=== PATIENT | female | born 1955 | race Caucasian/White ===

== ENCOUNTER → 2019-08-02 | Outpatient (CLI) | payer OTHER | LOC: M.MRI 07-25 11:30 | DX: S83.242A Other tear of medial meniscus, current injury, left knee, initial encounter (principal); M17.12 Unilateral primary osteoarthritis, left knee; X58.XXXA Exposure to other specified factors, initial encounter; Y93.89 Activity, other specified; Y92.89 Other specified places as the place of occurrence of the external cause; Y99.8 Other external cause status ==

== ENCOUNTER → 2019-08-11 | Outpatient (CLI) | payer OTHER ==
[~2019-08-11] MED LIST: BETAMETHASONE D50 G2 TOP; DIOVAN HCT 80-1 EACH PO; FLEXERIL PO; FUROSEMIDE 20 M20 M1 PO; IBUPROFEN 200200 M1 PO; KLOR-CON 1010 MEQ PO; LITE COAT ASPI325 MG PO; MUCINEX1200 MG PO; NORCO 5-325 TA1 EAC1 PO; OMEPRAZOLE40 MG PO; RESTORIL30 MG PO; TRIAMCINOLONE 080 G3 TOP; VIBRAMYCIN 100100 M2 PO; VOLTAREN GEL 1100 G2 TOP; ZOCOR 20 MG TAB20 M1 PO
== END ==
LOC: M.LAB 09:27
PROVIDERS: ATTEND Orthopaedic Surgery
DX: Z01.812 Encounter for preprocedural laboratory examination (principal)

== ENCOUNTER → 2019-08-17 | Day surgery (SDC) | payer OTHER ==
[2019-08-17 08:32] LABS: HEMOGLOBIN 15.5 gm/dL (12.0-15.0); MCH 30.2 pg (26.0-34.0); MCHC 33.7 g/dL (28.0-37.0); MCV 89.6 fL (80.0-100.0); MPV 9.3 fl. (7.2-11.1); RBC 5.13 mil/uL (4.20-5.00); RDW-CV 13.7 % (10.5-14.5); WBC 15.2 thou/uL (4.0-11.0)
[2019-08-17 08:43] LABS: CALCIUM 9.1 mg/dL (8.5-10.1); CREATININE 0.8 mg/dL (0.6-1.3); POTASSIUM 4.2 mmol/L (3.5-5.1)
--- NOTE | 2019-08-17 17:09 | EKG ---
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1955 Requested By: Mundo Hall Order Number: [id number] Elijah MD: Arnulfo Cohen Measurements Intervals [place] Rate: 102 P: 48 CT: 169 QRS: -25 QRSD: 83 T: 60 QT: 354 QTc: 462 Interpretive Statements Sinus tachycardia Borderline left axis deviation No previous ECG available for comparison Electronically Signed On 08-17-2019 17:07:53 CDT by Arnulfo Cohen [email or web address] <ELECTRONICALLY SIGNED> By: Arnulfo Cohen MD, [facility] 08/17/19 1707 2 2 Arnulfo Cohen MD, FACC /EPI
--- NOTE | 2019-08-18 14:41 | OP ---
[address] [address] OPERATIVE REPORT Name: MUSAJANE Estelita Room: [facility]#: [id number] Admission: 08/17/19 Attend Phys: Mundo Hall II Discharge: Date of : 55 Report #: [id number] THIS REPORT FOR: //name// cc: RASHMI WADDELL APRN, STEFFANY APRN ~ THIS REPORT FOR: //name// CC: Mundo WADDELL DATE OF SERVICE: 08/17/2019 PREOPERATIVE DIAGNOSIS: Left knee medial meniscus tear. POSTOPERATIVE DIAGNOSES: 1. Left knee medial meniscus tear. 2. Lateral meniscus tear. 3. Grade 3 chondromalacia, patellofemoral groove. PROCEDURE PERFORMED: 1. Left knee arthroscopic surgery with partial medial and lateral meniscectomy. 2. Abrasion chondroplasty, patellofemoral groove, down to bleeding bone. SURGEON: Mundo Hall II, DO FULLING MACHINE OPERATOR: DARLIN Farias ANESTHESIA: Per operative record. ESTIMATED BLOOD LOSS: Minimal. ANTIBIOTICS: Per operative record. DRAINS: None. COMPLICATIONS: None. CONDITION OF THE PATIENT: Stable to recovery room. DESCRIPTION OF PROCEDURE: The patient was taken to the operative suite and placed supine on the operative table, given appropriate anesthesia. The patient's affected lower extremity was sterilely prepped and draped with well-padded knee arthroscopic qiu. Surgery began by midline portal incision. The arthroscope was advanced in the joint. There was shown to be grade 3 chondromalacia, patellofemoral groove. Utilizing a shaver, an abrasion chondroplasty was performed down to bleeding bone and then smoothed using [facility] [address] [place] [address] OPERATIVE REPORT Name: JANE MUSA Room: [facility]#: [id number] Admission: 08/17/19 Attend Phys: Mundo Hall II Discharge: Date of : 55 Report #: [id number] Coblation wand. A medial meniscus was shown to have a tear to the medial margin extending around to the medial aspect of the joint. Utilizing a shaver, a partial meniscectomy was performed to remove the torn flap and baskets were utilized to smooth the meniscus. It was then smoothed with Coblation wand in appropriate fashion. Lateral meniscus was probed and shown to have a tear to the lateral margin extending around to the lateral aspect. Utilizing a shaver, a partial meniscectomy was performed as well as using baskets to resect the torn flap along the lateral meniscus and then smoothed utilizing Coblation wand. ACL and PCL were intact. Final irrigation was performed. The knee was drained of arthroscopic fluid, closed with 4-0 nylon in interrupted fashion. Dermabond and sterile dressing applied. The patient transported to recovery room in stable condition. Counts were correct throughout the procedure. <ELECTRONICALLY SIGNED> By: Mundo Hall II, DO 08/18/19 1441 [id number] Hall II, DO /nt
== END | disposition home or self-care (01) ==
LOC: M.SUR 07:10
PROVIDERS: ATTEND Orthopaedic Surgery
DX: S83.232A Complex tear of medial meniscus, current injury, left knee, initial encounter (principal); S83.272A Complex tear of lateral meniscus, current injury, left knee, initial encounter; M94.262 Chondromalacia, left knee; M25.572 Pain in left ankle and joints of left foot; M25.462 Effusion, left knee; I10 Essential (primary) hypertension; E78.00 Pure hypercholesterolemia, unspecified; M19.90 Unspecified osteoarthritis, unspecified site; Z86.010 Personal history of colon polyps; Z98.890 Other specified postprocedural states; Z79.899 Other long term (current) drug therapy; Z90.710 Acquired absence of both cervix and uterus